=== PATIENT | female | born 1985 | race African-American/Black ===

== ENCOUNTER 2024-04-10 07:52 | Emergency (ER) | payer BC, OTHER ==
[2024-04-10 08:02] VITALS: BP 124/73; PULSE 69; RESP 18; TEMP 98.6; BMI 25.8
[2024-04-10] MEDS ORDERED: AMOX TR/POT CLAV 875MG/125MG TABLETS (FP) ONE (08:38)
[2024-04-10] MEDS ORDERED: ACETAMINOPHEN 325 MG TABLET (FP) ONE (08:38)
[2024-04-10] MEDS: AMOX TR/POT CLAV 875MG/125MG TABLETS (FP) PO ONE (08:40)
[2024-04-10] MEDS: ACETAMINOPHEN 325 MG TABLET (FP) PO ONE (08:40)
== END 2024-04-10 09:12 | disposition home or self-care (01) ==
LOC: JERFT 07:52
DX: S00.261A Insect bite (nonvenomous) of right eyelid and periocular area, initial encounter (principal); L03.213 Periorbital cellulitis; W57.XXXA Bitten or stung by nonvenomous insect and other nonvenomous arthropods, initial encounter; Y92.019 Unspecified place in single-family (private) house as the place of occurrence of the external cause
CPT/HCPCS: 99283-25